=== PATIENT | male | born 1960 | race American Indian/Alaskan Native ===

== ENCOUNTER 2019-05-29 12:03 | Emergency (ER) | payer MEDICAID ==
[~2019-05-29] VITALS: Ht 172.7 cm; Wt 88.5 kg
[2019-05-29 12:11] VITALS: BP 124/73; Ht 172.7 cm; Wt 88.5 kg
== END 2019-05-29 12:45 | disposition home or self-care (01) ==
LOC: ED 12:03
DX: K59.00 Constipation, unspecified (principal); K40.90 Unilateral inguinal hernia, without obstruction or gangrene, not specified as recurrent; E66.9 Obesity, unspecified

== ENCOUNTER 2019-08-02 15:12 | Inpatient (IN) | payer MEDICAID ==
[~2019-08-02] VITALS: Ht 172.7 cm; Wt 90.9 kg
[2019-08-02 15:23] VITALS: Ht 172.7 cm; Wt 90.9 kg
--- NOTE | 2019-08-02 15:50 | NUR ---
PT COMES TO ER WITH C/O RT LOWER PAIN SECONDARY TO HERNIA. STATES HE'S HAD IT FOR OVER 20 YEARS BUT GETTING WORSE IN THE LAST YEAR. DENIES N/V/D, NO FEVERS/CHILLS. RESP EVEN AND UNLABORED, ON RA @98% ABD ROUND/SOFT, DENIES DYSURIA.
--- NOTE | 2019-08-02 17:53 | NUR ---
NO ACUTE CHANGES IN CONDITION, PT LAYING IN BED, IN NAD.
[2019-08-02 18:08] LABS: BASOPHIL % 0.6 % (0-2); PLATELET COUNT 173 x10^3mcL (130-400); RED CELL DISTRIBUTION WIDTH 14.3 % (11.5-14.5)
[2019-08-02 18:14] LABS: CALCIUM 8.3 mg/dL (8.5-10.1); CARBON DIOXIDE 31.1 mmol/L (21-32); CHLORIDE SERUM 110 mmol/L (98-107); CREATININE SERUM 0.8 mg/dL (0.7-1.3); GFR1 > 60 mL/min; GLUCOSE SERUM 77 mg/dL (74-106); SODIUM SERUM 145 mmol/L (136-145)
[2019-08-02 18:19] LABS: ALBUMIN 3.3 g/dL (3.4-5.0); ALKALINE PHOSPHATASE 63 U/L (46-116); ALT/SGPT 12 U/L (16-63); AMYLASE 30 U/L (25-115); AST/SGOT 14 U/L (15-37); BILIRUBIN TOTAL 0.7 mg/dL (0.20-1.00); LIPASE 90 IU/L (73-393); TOTAL PROTEIN, SERUM 6.8 g/dL (6.4-8.2)
--- NOTE | 2019-08-02 19:14 | NUR ---
REPORT RECIEVED FROM RN. RESUMED CARE OF PT. PT NOTIFIED OF NO PAIN @ THIS TIME. PT STATES PAIN COMES AND GOES AND IS SHARP RLQ PAIN. STATED THAT THIS HAS BEEN GOING ON FOR A COUPLE YEARS. ABD SOFT AND ROUND. BS ACTIVE X4Q. PT DENIES PAIN ON PALPATION. DENIES N/V.
[2019-08-02 20:01] LABS: CHOLESTEROL/HDL RATIO 2.6
[2019-08-02 20:06] LABS: T3 TOTAL 1.19 ng/mL
--- NOTE | 2019-08-02 20:24 | NUR ---
REPORT CALLED AND GIVEN TO TO CATHERINE AYALA. NOTIFED THAT BED CHANGED FROM 239B TO 238B. PT RESTING CALMLY IN BED NO ACUTE CHANGES. HR 75. BP 135/74(92). O2 100%.
[2019-08-02 21:11] VITALS: BP 118/74
--- NOTE | 2019-08-02 21:15 | NUR ---
RECEIVED PT FROM ED VIA SIMON. ORIENTED PT TO ROOM AND SURROUNDINGS. IV NOTED TO LAC PATENT AND INTACT. INSTRUCTED PT ON THE USE OF CALL LIGHT FOR ASSISTANCE. ENDORSED PT TO PRIMARY NURSE CATHERINE
[2019-08-02 21:17] LABS: FREE T4 1.1 ng/dL (0.76-1.46); FREE THYROXINE INDEX 3.4 ug/dL (1.4-4.5)
--- NOTE | 2019-08-02 21:45 | NUR ---
RECIEVED PT FROM AARON RN IN NO ACUTE DISTRESS. AOX4. MED SURG. BREATHING E/U. DENIES ABD PAIN AT THIS TIME. IV TO LFA. NPO FOR POSSIBLE PROCEDURE. ORIENTED TO ROOM. BED IN LOWEST POSITION, 2 SIDE RAILS UP, CALL LIGHT IN REACH. INSTRUCTED TO CALL FOR ASSISTANCE.
--- NOTE | 2019-08-03 00:50 | NUR ---
RESTING WITH EYES CLOSED. BREATHING E/U. NO ACUTE DISTRESS NOTED. WILL CONTINUE TO MONITOR.
[2019-08-03 05:20] VITALS: BP 98/62
--- NOTE | 2019-08-03 06:01 | NUR ---
NO C/O ABD PAIN OVERNIGHT. NO ACUTE DISTRESS NOTED. WILL ENDORSE TO ONCOMING RN.
[2019-08-03 06:06] LABS: BASOPHIL % 0.8 % (0-2); PLATELET COUNT 164 x10^3mcL (130-400)
[2019-08-03 06:17] LABS: CARBON DIOXIDE 28.5 mmol/L (21-32); CHLORIDE SERUM 112 mmol/L (98-107); CREATININE SERUM 0.8 mg/dL (0.7-1.3); GFR1 > 60 mL/min; GLUCOSE SERUM 76 mg/dL (74-106); MAGNESIUM 2.2 mg/dL (1.8-2.4); PHOSPHOROUS 3.1 mg/dL (2.5-4.9); POTASSIUM SERUM 4.4 mmol/L (3.5-5.1); SODIUM SERUM 146 mmol/L (136-145)
[2019-08-03 07:22] VITALS: BP 113/71
--- NOTE | 2019-08-03 07:44 | NUR ---
RECEIVED AWAKE, ALERT AND ORIENTED. NO RES[P. DISTRESS NOTED. NO C/O ABD. PAIN AT THIS TIME. VS WNL. IVF INFUSING WELL AND SITE CLEAR. CALL LIGHT WITHIN REACH. WILL CONTINUE WITH PLAN OF CARE.
--- NOTE | 2019-08-03 12:27 | NUR ---
PT LEFT AMA IN NO ACUTE RESP. DISTRESS. AWAKE, ALERT AND ORIENTED. STATED HE FEELS BETTER AND NO NEED TO BE HERE, STATED HE HAS BUSINESS TO TAKE CARE OF. HL REMOVED AND CATH INTACT. SITE WITH NO REDNESS OR SWELLING. DR. JACKSON AWARE. PT DENIES PAIN OR DISCOMFORT AT THIS TIME. PERSONAL BELONGINGS TAKEN HOME.
== END 2019-08-03 14:45 | disposition left against medical advice (07) | DRG 254 ==
LOC: ED 15:12 → MU 19:19 → ED 19:19 → MU 21:22
PROVIDERS: Emergency Medicine; ADMIT Internal Medicine
DX: K35.80 Unspecified acute appendicitis (principal); E66.9 Obesity, unspecified; K40.90 Unilateral inguinal hernia, without obstruction or gangrene, not specified as recurrent; Z68.30 Body mass index [BMI] 30.0-30.9, adult; K57.30 Diverticulosis of large intestine without perforation or abscess without bleeding; Z53.29 Procedure and treatment not carried out because of patient's decision for other reasons
CPT/HCPCS: 84439; G0378; J1885; J7030; Q0092

== ENCOUNTER 2019-08-03 15:49 | Inpatient (IN) | payer MEDICAID ==
[~2019-08-03] VITALS: Ht 172.7 cm; Wt 90.9 kg
[2019-08-03 15:55] VITALS: Ht 172.7 cm; Wt 90.9 kg
--- NOTE | 2019-08-03 16:20 | NUR ---
PT CAME TO THE ED TODAY WITH CO RLQ PAIN. PT WAS SEEN HERE YESTERDAY AND TOLD HE HAD APPENDICITIS. PT STATES " THEY WOULDNT FEED ME UPSTAIRS AND I DIDNT KNOW WHEN THE SURGERY WAS GOING TO BE SO I WENT AND GOT FOOD." PT STATES HIS PAIN IS 2/10 AND STATES HE WILL NOT LEAVE AGAIN AND WANTS TO FEEL BETTER. PT DENIES ANY N/V/D. PT IS AWAKE AND ALERT. BREATHING EVEN AND UNLABORED. PT IS SITTING ON GURNEY WITH NAD. WILL CONTINUE TO MONITOR.
[2019-08-03 16:55] LABS: BASOPHIL % 0.9 % (0-2); PLATELET COUNT 182 x10^3mcL (130-400); RED CELL DISTRIBUTION WIDTH 13.6 % (11.5-14.5)
[2019-08-03 17:09] LABS: CALCIUM 8.2 mg/dL (8.5-10.1); CARBON DIOXIDE 27.1 mmol/L (21-32); CHLORIDE SERUM 107 mmol/L (98-107); GFR1 > 60 mL/min; GLUCOSE SERUM 73 mg/dL (74-106); POTASSIUM SERUM 4.4 mmol/L (3.5-5.1); SODIUM SERUM 143 mmol/L (136-145)
[2019-08-03 17:14] LABS: ALBUMIN 3.7 g/dL (3.4-5.0); ALKALINE PHOSPHATASE 71 U/L (46-116); AST/SGOT 12 U/L (15-37); BILIRUBIN TOTAL 0.88 mg/dL (0.20-1.00); LIPASE 83 IU/L (73-393); TOTAL PROTEIN, SERUM 7.2 g/dL (6.4-8.2)
[2019-08-03 17:24] LABS: ALT/SGPT 12 U/L (16-63)
--- NOTE | 2019-08-03 18:20 | NUR ---
I SPOKE WITH ONLINE RAD I GAVE THE FINDINGS OF POSSIBLE APPY TO DOCTOR HUBER HE IS FULLY AWARE OF.
--- NOTE | 2019-08-03 18:36 | NUR ---
ABX STARTED PER MD ORDER. NO ORDER FOR BLOOD CUTLURES PER MD
--- NOTE | 2019-08-03 18:39 | NUR ---
REPORT GIVEN TO SNEHA AYALA ON MS FOR FURTHER CARE OF PT
[2019-08-03 19:26] VITALS: BP 113/61
--- NOTE | 2019-08-03 19:29 | NUR ---
RECEIVED PT FROM ED VIA [place]. ORIENTED PT TO ROOM AND SURROUNDINGS. IV NOTED TO LAC PATENT AND INTACT. INSTRUCTED PT ON THE UE OF CALL LIGHT FOR ASSISTANCE. ENDORSED PT TO PRIMARY NURSE ISAIAH
--- NOTE | 2019-08-03 20:15 | NUR ---
PT CURRENTLY RESTING IN BED, NO ACUTE DISTRESS. A/O X4. NO TELE, MED/SURG. DENIES CHEST PAIN. PULSES PALPABLE IN ALL EXTREMITIES, NO EDEMA NOTED. LUNG SOUNDS CTA BILATERALLY, DENIES SOB. BOWEL SOUNDS ACTIVE, LAST BM 08/03/19. VOIDING WELL. AMBULATORY. SKIN INTACT. IV PATENT AND INTACT. BED IN LOWEST POSITION, SIDE RAILS UP X2, CALL LIGHT WITHIN REACH. WILL CONTINUE TO MONITOR.
--- NOTE | 2019-08-04 00:03 | NUR ---
PT CURRENTLY RESTING IN BED, NO ACUTE DISTRESS. WILL CONTINUE TO MONITOR.
[2019-08-04 05:08] VITALS: BP 100/62
[2019-08-04 06:14] LABS: BASOPHIL % 0.8 % (0-2); PLATELET COUNT 153 x10^3mcL (130-400); RED CELL DISTRIBUTION WIDTH 13.7 % (11.5-14.5)
--- NOTE | 2019-08-04 06:37 | NUR ---
PT SLEPT PERIODICALLY THROUGHOUT NIGHT, NO ACUTE DISTRESS. ALL NEEDS MET AND ATTENDED TO. NO SIGNIFICANT CHANGES. IV PATENT AND INTACT. BED IN LOWEST POSITION, SIDE RAILS UP X2, CALL LIGHT WITHIN REACH. WILL ENDORSE CARE TO ONCOMING NURSE.
[2019-08-04 06:43] LABS: CALCIUM 8.1 mg/dL (8.5-10.1); CARBON DIOXIDE 26.4 mmol/L (21-32); CHLORIDE SERUM 107 mmol/L (98-107); CREATININE SERUM 0.8 mg/dL (0.7-1.3); GFR1 > 60 mL/min; GLUCOSE SERUM 69 mg/dL (74-106); PHOSPHOROUS 2.9 mg/dL (2.5-4.9); POTASSIUM SERUM 3.8 mmol/L (3.5-5.1); SODIUM SERUM 142 mmol/L (136-145)
[2019-08-04 07:15] VITALS: BP 113/66
--- NOTE | 2019-08-04 07:41 | NUR ---
RECEIVED AWAKE, ALERT AND ORIENTED. SITTING ON A CHAIR. NO RESP. DISTRESS NOTED. VS WNL. NO C/O ABD. PAIN OR DISCOMFORT. HL PATENT. CALL LIGHT WITHIN REACH. WILL CONTINUE WITH PLAN OF CARE.
[2019-08-04 10:47] LABS: microscopic required? NO
[2019-08-04 11:49] LABS: UA SPECIFIC GRAVITY >=1.030 (1.005-1.035); urine erythrocyte NEGATIVE (NEGATIVE)
[2019-08-04 12:12] LABS: AMPHETAMINE QUAL UR NONE DETECTED (See below)
--- NOTE | 2019-08-04 13:07 | NUR ---
TOLERATED WELL WITH CLEAR LIQ. DIET. NO C/O N/V AT THIS TIME. PT DENIES ABD. DISCOMFORT.
--- NOTE | 2019-08-04 15:39 | NUR ---
AMBULATING ON HALLWAYS IN NO DISTRESS. DENIES PAIN OR DISCOMFORT.
[2019-08-04 16:31] VITALS: BP 104/56
--- NOTE | 2019-08-04 18:27 | NUR ---
PT SITTING N A ELISABET. FAMILY AT BEDSIDE. VS WNL. TOLERATED WELL WITH LIQ. DIET. NO N/V NOR ABD. PAIN. IVF INFUSING WELL AND SITE CLEAR. CALL LIGHT WITHIN REACH. WILL BE ENDORSED TO INCOMING SHIFT.
--- NOTE | 2019-08-04 19:31 | NUR ---
PT CURRENTLY RESTING IN BED, NO ACUTE DISTRESS. A/O X4. NO TELE, MED/SURG. DENIES CHEST PAIN. PULSES PALPABLE IN ALL EXTREMITIES, NO EDEMA NOTED. LUNG SOUNDS CTA BILATERALLY, DENIES SOB. BOWEL SOUNDS ACTIVE, LAST BM 08/04/19. VOIDING WELL. AMBULATORY. SKIN INTACT. IV PATENT AND INTACT. BED IN LOWEST POSITION, SIDE RAILS UP X2, CALL LIGHT WITHIN REACH. WILL CONTINUE TO MONITOR.
[2019-08-04 20:05] VITALS: BP 108/67
--- NOTE | 2019-08-05 00:25 | NUR ---
PT CURRENTLY RESTING IN BED, NO ACUTE DISTRESS. WILL CONTINUE TO MONITOR.
[2019-08-05 05:34] VITALS: BP 100/63
--- NOTE | 2019-08-05 07:10 | NUR ---
AAO X4.DENIES ANY PAIN/DISCOMFORT.LUNGS CLEAR.PT NONE TELE.IVF NS GOING AT 100 ML/HR INFUSING WELL.ON NPO STATUS FOR POSSIBLE PROCEDURE.PT AWARE.CALL LIGHT WITHIN REACH.INSTRUCTED TO CALL FOR ANY PAIN/DISCOMFORT.WILL CONTINUE TO MONITOR PT.
[2019-08-05 07:24] LABS: BASOPHIL % 0.7 % (0-2); PLATELET COUNT 158 x10^3mcL (130-400); RED CELL DISTRIBUTION WIDTH 13.8 % (11.5-14.5)
[2019-08-05 07:30] VITALS: BP 106/62
[2019-08-05 07:34] LABS: CALCIUM 8.1 mg/dL (8.5-10.1); CARBON DIOXIDE 26.3 mmol/L (21-32); CHLORIDE SERUM 108 mmol/L (98-107); CREATININE SERUM 0.8 mg/dL (0.7-1.3); GFR1 > 60 mL/min; GLUCOSE SERUM 80 mg/dL (74-106); MAGNESIUM 1.9 mg/dL (1.8-2.4); POTASSIUM SERUM 3.9 mmol/L (3.5-5.1); SODIUM SERUM 143 mmol/L (136-145)
--- NOTE | 2019-08-05 08:20 | NUR ---
CONSENT SIGNED BY PT FOR LAP APPY. PER PT TALKED TO HIM ABOUT HERNIA REPAIR YESTERDAY.CALLED OR NURSE STRATTON ABOUT PT'S CONCERN. PER VIRAL,OR NURSE WILL INFORM .
--- NOTE | 2019-08-05 08:55 | NUR ---
AT BEDSIDE TALKING TO PT EXPLAINING THE PROCEDURE.ALSO FAMILY MEMBER AT BEDSIDE.
[2019-08-05 10:53] VITALS: BP 111/57
--- NOTE | 2019-08-05 10:53 | NUR ---
PT BACK FR. RECOVERY ROOM S/P LAP APPY.AAO X4.DENIES ANY PAIN AT THE MOMENT.V/X=QM=440/57 (98).HR=52,RR=14,T=96.8,SPO2=97%.ABD'L INCISSIN WITH MERLE X3 + 1 VARRIS NEEDLE SITE COVERED WITH BANDAID COVERED WITH BANDAID CDI.CALL LIGHT WITHIN REACH.WILL CONTINUE TO MONITOR PT.
--- NOTE | 2019-08-05 12:30 | NUR ---
PT FELT NAUSEATED.INSTRUCTED HIM NOT TO EAT YET.PT VERBALIZES UNDERSTANDING.
[2019-08-05 16:37] VITALS: BP 117/52
--- NOTE | 2019-08-05 18:26 | NUR ---
PT TOLERATED HIS REGULAR DIET.NO VOMITTING NOTED.
--- NOTE | 2019-08-05 18:28 | NUR ---
NO SIGNIFICANT CHANGE NOTED.WILL ENDORSE TO NEXT SHIFT.
--- NOTE | 2019-08-05 20:04 | NUR ---
PT. AWAKE, ALERT, ORIENTED X4, DENIES HEADACHE OR DIZZINESS. BREATH SOUNDS CLEAR THROUGHOUT LUNG MARQUEZ, RESP. EVEN, UNLABORED. NO SOB NOTED. PT.ON RA. DENIES CHESTPAIN OR DISCOMFORT. ABD. SOFT AND FLAT, BOWEL SOUNDS ACTIVE. S/P LAP APPE W/ BANDIDS TO ABD X4, CDI. DENIES ABD. PAIN. DENIES NAUSEA. NO EDEMA TO EXTREMITIES. PEDAL PULSES STRONG CASEY. IVF INFUSING WELL, SITE INTACT. CALL LIGHT WITHIN REACH.
[2019-08-05 20:34] VITALS: BP 120/63
--- NOTE | 2019-08-06 02:31 | NUR ---
PT. C/O ABD. PAIN, 3-03/06. PRN TORADOL WAS GIVEN. PT. NOW DOZING. EYES CLOSED, APPEARS TO BE SLEEPING. CALL LIGHT WITHIN REACH. WILL MONITOR.
--- NOTE | 2019-08-06 05:33 | NUR ---
PT. SLEEPING. BANDAIDS X4 DRY AND INTACT. NO NEW BLEED NOTED. THROUGHOUT NIGHT. IVF INFUSING WELL. CALL LIGHT WITHIN REACH. WILL ENDORSE PT CARE TO INCOMING NURSE.
[2019-08-06 06:22] VITALS: BP 107/60
--- NOTE | 2019-08-06 07:10 | NUR ---
AAO X4.C/O MILD ABD'L INCISSION PAIN AT 2/10 PAIN SCALE.S/P LAP APPY ON 08/05/19.LUNGS CLEAR.PT NON-TELE.IVF NS GOING AT 100 ML/HR INFUSING WELL.ABD'L INCISSION X 4 WITH BANDAID CDI.CALL LIGHT WITHIN REACH.INSTRUCTED TO CALL FOR ANY PAIN/DISCOMFORT.WILL CONTINUE TO MONITOR PT.
[2019-08-06 07:29] LABS: CALCIUM 7.7 mg/dL (8.5-10.1); CHLORIDE SERUM 109 mmol/L (98-107); CREATININE SERUM 0.7 mg/dL (0.7-1.3); GFR1 > 60 mL/min; GLUCOSE SERUM 89 mg/dL (74-106); POTASSIUM SERUM 3.6 mmol/L (3.5-5.1); SODIUM SERUM 143 mmol/L (136-145)
[2019-08-06 07:32] LABS: PLATELET COUNT 149 x10^3mcL (130-400); RED CELL DISTRIBUTION WIDTH 14.4 % (11.5-14.5)
[2019-08-06 07:37] LABS: BASOPHIL % 0 % (0-2)
[2019-08-06 08:42] VITALS: BP 114/78
[2019-08-06 11:55] VITALS: BP 114/78
--- NOTE | 2019-08-06 13:32 | NUR ---
PT D/C TO HOME IV D/C'D.DISCHARGE INSTRUCTION GIVEN.PT VERBALIZES UNDERSTANDING.PT CALLED BROTHER TO PICK HIM UP.AWAITING FOR HIS BROTHER.
--- NOTE | 2019-08-06 13:51 | NUR ---
BROTHER HERE TO CERTIFIED INCOME TAX PREPARER PT.WENT DOWN VIA WHEELCHAIR ACCOMPANIED BY CIVIL ESTIMATOR AND BROTHER.
--- NOTE | 2019-08-06 16:03 | NUR ---
Discount pharmacy card and list to low cost medical clinics given to patient by Khalida Chaney.
== END 2019-08-06 13:52 | disposition home or self-care (01) | DRG 234 ==
LOC: ED 15:49 → MU 17:38
PROVIDERS: Emergency Medicine; Surgery; ADMIT Internal Medicine
PROC: 0DTJ4ZZ Resection of Appendix, Percutaneous Endoscopic Approach (ICD-10-PCS; principal; 2019-08-05 09:30)
DX: K35.80 Unspecified acute appendicitis (principal); E66.9 Obesity, unspecified; K40.90 Unilateral inguinal hernia, without obstruction or gangrene, not specified as recurrent; Z68.30 Body mass index [BMI] 30.0-30.9, adult; Z87.891 Personal history of nicotine dependence
CPT/HCPCS: 84439; 94150; G0378; J0330; J1170; J1885; J1956; J2405; J2704; J2710; J3010; J3490; J7030; J7040; J7120; Q0092; Q9967